=== PATIENT | female | born 1995 | race Caucasian/White ===

== ENCOUNTER 2017-12-02 09:10 | Emergency (ER) | payer BC ==
[~2017-12-02] VITALS: Ht 167.6 cm; Wt 62.2 kg
[2017-12-02 09:13] VITALS: TEMP 36.8; Ht 167.6 cm; Wt 62.2 kg
--- NOTE | 2017-12-02 09:37 | EMERGENCY ROOM VISIT NOTE ---
History First contact with patient: 09:19 Chief Complaint: WRIST PAIN Stated Complaint: POSSIBLE BROKEN WRIST LEFT History of Present Illness The patient is a 22 year old female who presents to the Emergency Room via private vehicle with complaints of "possible broken left wrist". The patient states that she was walking yesterday around 11 PM when she fell, and injured her left wrist. She states that there is no swelling and pain. She rates the overall pain as a 7/10. She is tried Advil without relief. She notes decreased range of motion of the left wrist. She notes no numbness or tingling in the hand. No other injury. Her tetanus is up-to-date. Review of Systems A complete 6-point Review of Systems was discussed with the patient, with pertinent positives and negatives listed in the History of Present Illness. All remaining Review of Systems questions can be considered negative unless otherwise specified. Past Medical/Surgical History Heart disease/ Arrhythmia. Family History Non contributory Social History Smoking Status: Never Smoker Pt. is a [employer] student Current/Historical Medications Scheduled Control Pills ( Control Pills), 1 TAB PO DAILY Scheduled PRN Hydrocodone/Acetaminophen 5MG/325MG (Hamel 5MG/325MG), 1-2 TABLET PO Q6 PRN for Pain Propranolol (Inderal), 10 MG PO UD PRN for HEART PALPITATIONS Physical Exam Vital Signs Date Time Temp Pulse Resp B/P (MAP) Pulse Ox O2 Delivery O2 Flow Rate FiO2 12/02/17 10:38 97 16 108/69 98 Room Air 12/02/17 09:13 36.8 113 18 86/66 97 Room Air Physical Exam VITAL SIGNS - Vital signs and nursing notes were reviewed. Stable. GENERAL - 22-year-old female appearing her stated age who is in no acute distress. Communicates well with provider and answers questions appropriately. SKIN - Without rashes. Small abrasion to ventral distal wrist, L. No open fx. HEAD - NC/AT. EYES - Sclera anicteric. EXTREMITIES - R wrist with soft tissue edema of dorsal distal L wrist. Decreased range of motion of the patient's left wrist. There is tenderness to palpation overlying the distal radius. +5/5 strength noted in UE/LE bilaterally. She is neurovascularly intact proximally and distally. No tenderness in the proximal forearm or distal hand/fingers. Medical Decision & Procedures ER Provider Diagnostic Interpretation: L WRIST W/NAVICULAR MIN 3 VIEWS CLINICAL HISTORY: Fall, L wrist pain pain COMPARISON: None. DISCUSSION: Transverse fracture distal radius. Extension to the articular services with no significant displacement. All remaining osseous structures are unremarkable. Moderate soft tissue edema. IMPRESSION: Fracture distal radius showing a nondisplaced extension to the articular surface. Slight dorsal displacement of a small avulsed component The above report was generated using voice recognition software. It may contain grammatical, syntax or spelling errors. Electronically signed by: Derick Bryson M.D. 12/02/2017 10:06 AM Dictated Date/Time: 12/02/2017 10:05 AM Medications Administered Medications (Trade) Dose Ordered Sig/Ramin Route Start Time Stop Time Status Last Admin Dose Admin Acetaminophen/ Hydrocodone Bitart (Hamel 5/325 Tab) 1 tab NOW STAT PO 12/02/17 10:25 12/02/17 10:26 DC 12/02/17 10:40 1 TAB Medical Decision Patient was seen and evaluated as above. She presents to us today status post fall with left wrist pain. Review was performed of nursing notes and vital signs. After obtaining a thorough history and physical examination the above work up was performed. X-ray was obtained. She was given ice packs. She initially declined pain medication but was then given Hamel per request of something for pain. She will be given a small prescription of this. Benefit versus risk of prescribing Hamel was discussed. No red flags in the [place] monitoring system. With the nondisplaced fracture, with a small displaced dorsal fragment I do believe that outpatient follow-up is warranted following the application of a Ortho-Glass volar splint. This was with good fit. She was neurovascularly intact post splinting. No numbness. She notes that she would like to follow-up with orthopedics back home. She was given a copy of her disc as well as the report. She was also given contact information for local orthopedics in the event that she cannot follow up back home. Tetanus up-to-date. The patient was educated upon management, had questions answered prior to discharge, and was discharged home in good condition. In the evaluation and treatment of this patient, the following differential diagnoses were considered: Wrist Sprain, Wrist Fracture, Wrist Dislocation, Scapholunate Dissociation, Carpal Fracture, Metacarpal Fracture, Radial Styloid Process Fracture, Ulnar Styloid Process Fracture, or Carpal Tunnel Syndrome. Impression Primary Impression: Wrist pain, left Additional Impression: Radius fracture Departure Information Dispostion Home / Self-Care Condition GOOD Prescriptions Hydrocodone/Acetaminophen 5MG/325MG (Hamel 5MG/325MG) Tab 1-2 TABLET PO Q6 Y for Pain, #15 TAB For Initial Treatment Prov: Stuart Lozano PA-C 12/02/17 Referrals Claude Moreno MD Patient Instructions [facility] Additional Instructions You have been treated in the Emergency Department for Wrist Pain. You have received pain medicine in the emergency department which impairs your ability to operate a vehicle. It is illegal for you to drive after receiving these medicines. You have been prescribed NORCO to be used for pain control. This is a narcotic medication. You cannot drive or consume alcohol while on this medicine. This medicine should only be used for pain that cannot be controlled with over-the- counter pain medicines. (Please no tylenol with this) For pain control, you can use the following [id number] medicines: - Regular strength (325mg/tab) Tylenol (acetaminophen) 2 tabs every 4-6 hours as needed. Do not exceed 12 tablets in a 24 hour period. Avoid taking more than 3 grams (3000 mg) of Tylenol per day. This includes any other sources of acetaminophen you may take on a regular basis. - Regular strength (200 mg/tab) Advil (ibuprofen) 1-2 tabs every 4-6 hours as needed. Do not exceed a dose of 3200 mg per day. If this is a recent injury (<24 hrs), ice can be applied to the area of pain for the first 3 days to help decrease pain and inflammation. You have been provided the number for an Orthopaedic Surgeon. You should call this number as soon as possible to establish a follow-up visit from today's Emergency Department visit. (OR keep your follow up with the one back home as we discussed) Keep the brace/splint in place until evaluated by Orthopedics. Return to the Emergency Department if your current symptoms worsen despite treatment course outlined above, or if you develop any of the following symptoms : intractable pain despite aforementioned treatment course or new onset of numbness or tingling of the fingers. L WRIST W/NAVICULAR MIN 3 VIEWS CLINICAL HISTORY: Fall, L wrist pain pain COMPARISON: None. DISCUSSION: Transverse fracture distal radius. Extension to the articular services with no significant displacement. All remaining osseous structures are unremarkable. Moderate soft tissue edema. IMPRESSION: Fracture distal radius showing a nondisplaced extension to the articular surface. Slight dorsal displacement of a small avulsed component Problem Qualifiers
[2017-12-02] MEDS ORDERED: PROP10TA7 PO (09:51)
[2017-12-02] MEDS ORDERED: BCPILLS PO (09:51)
--- NOTE | 2017-12-02 10:08 | DIAGNOSTIC IMAGING REPORT ---
L WRIST W/NAVICULAR MIN 3 VIEWS CLINICAL HISTORY: Fall, L wrist pain pain COMPARISON: None. DISCUSSION: Transverse fracture distal radius. Extension to the articular services with no significant displacement. All remaining osseous structures are unremarkable. Moderate soft tissue edema. IMPRESSION: Fracture distal radius showing a nondisplaced extension to the articular surface. Slight dorsal displacement of a small avulsed component The above report was generated using voice recognition software. It may contain grammatical, syntax or spelling errors. Electronically signed by: Derick Bryson M.D. 12/02/2017 10:06 AM Dictated Date/Time: 12/02/2017 10:05 AM
[2017-12-02] MEDS ORDERED: HYDROCODONE/ACETAMIN 5/325MG TAB PO STA (10:25)
[2017-12-02 10:38] VITALS: BP 108/69; PULSE 97; O2SAT 98
[2017-12-02] MEDS ORDERED: HYDR-5688 PO (10:42)
== END 2017-12-02 10:55 | disposition home or self-care (01) ==
LOC: C.EDB 09:13 → C.EDA 10:55
DX: M25.532 Pain in left wrist (principal); S52.92XA Unspecified fracture of left forearm, initial encounter for closed fracture; W19.XXXA Unspecified fall, initial encounter; I51.9 Heart disease, unspecified; I49.9 Cardiac arrhythmia, unspecified